=== PATIENT | female | born 1970 | race Caucasian/White ===

== ENCOUNTER 2016-11-25 01:15 | Emergency (ER) | payer MEDICAID, OTHER ==
[~2016-11-25] VITALS: Ht 162.6 cm; Wt 85.5 kg
[~2016-11-25 01:15] MED LIST: ACET1TAB40 PO; IBUP-1542 PO
[2016-11-25 01:26] VITALS: Ht 162.6 cm; Wt 85.5 kg
[2016-11-25 01:50] LABS: URINE BLOOD (Dip) POC 1+ (NEGATIVE)
[2016-11-25] MEDS ORDERED: CEPH-443 PO (02:08)
[2016-11-25] MEDS ORDERED: IBUP-1542 PO (02:08)
[2016-11-25 16:09] LABS: URINE BLOOD (Dip) POC 1+ (NEGATIVE)
--- NOTE | 2016-11-30 10:35 | ERD ---
ER Documentation Chief Complaint Date/Time DATE: 11/30/16 TIME: 10:33 Chief Complaint left lower back x 1 day HPI Patient has left lower back pain that began today. She denies any trauma. Denies any fever. She admits to dysuria and increased urinary frequency but no hematuria. No nausea vomiting or diarrhea. Denies any trauma. Denies any bowel or bladder incontinence. Denies any saddle anesthesia. ROS All systems reviewed and are negative except as per history of present illness. Medications Home Meds Active Scripts Cephalexin* (Keflex*) 500 Mg Capsule, 500 MG PO BID for 5 Days, CAP Prov:PATRICIA RYAN PA-C 11/25/16 Ibuprofen* (Motrin*) 600 Mg Tab, 600 MG PO Q6, #30 TAB Prov:PATRICIA RYAN PA-C 11/25/16 Acetaminophen-Codeine* (Acetaminophen-Cod #3*) 300-30 Mg Tab, 1 TAB PO Q4H Y for PAIN, #14 TAB Prov:SABINA KIRK MD 10/21/14 Ibuprofen* (Motrin*) 600 Mg Tab, 600 MG PO Q6, #20 TAB Prov:SABINA KIRK MD 10/21/14 Allergies Allergies: Coded Allergies: No Known Allergy (Unverified , 11/25/16) PMhx/Soc History of Surgery: Yes (craniotomy - tumor removal) Anesthesia Reaction: No Hx Neurological Disorder: No Hx Respiratory Disorders: No Hx Cardiac Disorders: Yes (hypotension) Hx Psychiatric Problems: No Hx Miscellaneous Medical Probl: No Hx Alcohol Use: No Hx Substance Use: No Hx Tobacco Use: No FmHx Family History: No diabetes Physical Exam Physical Exam Const: [] Head: Atraumatic Eyes: Normal Conjunctiva ENT: Normal External Ears, Nose and Mouth. Neck: Full range of motion..~ No meningismus. Resp: Clear to auscultation bilaterally Cardio: Regular rate and rhythm, no murmurs Abd: Soft, non tender, non distended. Normal bowel sounds Skin: No petechiae or rashes Back: No midline or flank tenderness Ext: No cyanosis, or edema Neur: Awake and alert Psych: Normal Mood and Affect Results 24 hrs Laboratory Tests Test 11/25/16 01:56 Bedside Urine pH (LAB) 8.5 Bedside Urine Protein (LAB) Trace Bedside Urine Glucose (UA) Negative Bedside Urine Ketones (LAB) Negative Bedside Urine Blood 1+ Bedside Urine Nitrite (LAB) Negative Bedside Urine Leukocyte Esterase (L Trace Procedures/MDM Patient presents with history and physical exam findings consistent with urinary tract infection. She was treated outpatient with Keflex. The differential diagnosis includes but is not limited to muscle strain, ligament strain, contusion, arthritis, discogenetic disease, non-musculoskeletal, cauda equina syndrome, cord compression, abscess and others. The differential diagnosis includes but is not limited to appendicitis, cholelithiasis, cholecystitis, pancreatitis, hepatitis, gastritis, peptic ulcer disease, bowel obstruction, diverticulitis, renal disease including stones, torsion, AAA, pyelonephritis, and others. Patient counseled regarding my diagnostic impression and care plan. Prior to discharge all questions answered. Pt agrees with treatment plan and understands strict return precautions. Pt is instructed to follow up with primary care provider within 24-48 hours. Precautionary instructions provided including instructions to return to the ER if not improving or for any worsening or changing symptoms or concerns. Departure Diagnosis: Primary Impression: Cystitis Condition: Stable Patient Instructions: Cystitis Additional Instructions: Llame al doctor MAEVELIN y cassandra jeri CURTIS PARA DENTRO DE 1-2 MICHAELS.Dgale a la secretaria que nosotros le instruimos hacer esta curtis.Avise o llame si urias condicin se empeora antes de la curtis. Regresa aqui si peor o no mejor. PATRICIA RYAN PA-C Nov 30, 2016 10:35
== END 2016-11-25 02:31 | disposition home or self-care (01) ==
LOC: FTE 01:15
DX: N30.90 Cystitis, unspecified without hematuria (principal)
CPT/HCPCS: 81003; Z7502; 99283